=== PATIENT | female | born 1980 | race Caucasian/White ===

== ENCOUNTER 2018-12-17 11:50 | Day surgery (SDC) | payer MEDICARE ==
[~2018-12-17] VITALS: Ht 149.9 cm; Wt 75.0 kg
[~2018-12-17 11:50] MED LIST: ALPR1; ALPR1 PO; AMOCLA500 PO; AMOX875 PO; Augmentin 875-1 EACH PO; BP MED; CIPR500 PO; CONEST.625 PO; CYCL10 PO; ESTR2 PO; FAMO20 PO; GABA100 PO; GABA300; GABA300 PO; GABA600 PO; GABA800 PO; GABAPENTIN 600 MG; HYDACE5 PO; HYDACE7.5 PO; LEVFLO500 PO; LEVSOD25 PO; LEVSOD88 PO; METF500; METO25ER PO; METPRE4DP PO; MULVITMINE PO; Norco 5-325 Ta1 EACH PO; OXYACE5T PO; OXYACEL PO; PRAV20 PO; PRED10 PO; PROC10; PROC10 PO; PROM25 PO; SEASONALE; SERT100; SPIR50; TESTOSTERONE5 G1; TRIMOX; VERA120ERB PO; Zofran Odt4 MG PO; [UNRECOGNIZED DRUG - OTHER]
--- NOTE | 2018-12-17 14:47 | NUR ---
12/17/18 1447 Penny Amaya 2MG IV VERSED GIVEN TO PT JUST PRIOR TO ENTERING THE PROCEDURE ROOM PER DR OLIVARES.
[2018-12-17 17:58] LABS: Adenovirus F 40/41 Not Detected (NOT DETECT); Astrovirus Not Detected (NOT DETECT); Campylobacter Sp Not Detected (NOT DETECT); Cryptosporidium Not Detected (NOT DETECT); Cyclospora Cayetanensis Not Detected (NOT DETECT); E. Coli O157 Not Detected (NOT DETECT); Entamoeba Histolytica Not Detected (NOT DETECT); Enteroaggregative E. coli-EAEC Not Detected (NOT DETECT); Enteropathogenic E. coli-EPEC Not Detected (NOT DETECT); Enterotoxigenic E. coli-ETEC Not Detected (NOT DETECT); Giardia Lamblia Not Detected (NOT DETECT); Norovirus GI/GII Not Detected (NOT DETECT); Plesiomonas Shigelloides Not Detected (NOT DETECT); Rotavirus A Not Detected (NOT DETECT); Salmonella Sp Not Detected (NOT DETECT); Sapovirus Not Detected (NOT DETECT); Shiga Toxin-prod E. coli-STEC Not Detected (NOT DETECT); Shigella/Enteroin E. coli-EIEC Not Detected (NOT DETECT); Vibrio Cholerae Not Detected (NOT DETECT); Vibrio Sp Not Detected (NOT DETECT); Yersinia Enterocolitica Not Detected (NOT DETECT)
== END 2018-12-17 15:14 | disposition home or self-care (01) ==
LOC: ORSCSDS 11:50
PROVIDERS: Internal Medicine Gastroenterology
PROC: 0DB98ZX Excision of Duodenum, Via Natural or Artificial Opening Endoscopic, Diagnostic (ICD-10-PCS; principal; 2018-12-17 13:45)
PROC: 0DB58ZX Excision of Esophagus, Via Natural or Artificial Opening Endoscopic, Diagnostic (ICD-10-PCS; principal; 2018-12-17 13:45)
PROC: 0DBM8ZX Excision of Descending Colon, Via Natural or Artificial Opening Endoscopic, Diagnostic (ICD-10-PCS; principal; 2018-12-17 13:45)
PROC: 0DBE8ZX Excision of Large Intestine, Via Natural or Artificial Opening Endoscopic, Diagnostic (ICD-10-PCS; principal; 2018-12-17 13:45)
PROC: 0DB68ZX Excision of Stomach, Via Natural or Artificial Opening Endoscopic, Diagnostic (ICD-10-PCS; principal; 2018-12-17 13:45)
DX: R19.7 Diarrhea, unspecified (principal); R10.9 Unspecified abdominal pain; K57.30 Diverticulosis of large intestine without perforation or abscess without bleeding; K64.1 Second degree hemorrhoids; K29.80 Duodenitis without bleeding; R11.0 Nausea; K20.9 Esophagitis, unspecified; K29.70 Gastritis, unspecified, without bleeding; F17.210 Nicotine dependence, cigarettes, uncomplicated; G40.909 Epilepsy, unspecified, not intractable, without status epilepticus; Z79.899 Other long term (current) drug therapy; E03.9 Hypothyroidism, unspecified
CPT/HCPCS: 0097U; 88305; 88342; J2250; J2405; J2704; J7120

== ENCOUNTER 2021-09-09 15:41 | Emergency (ER) | payer OTHER ==
[~2021-09-09] VITALS: Ht 149.9 cm; Wt 63.0 kg
[2021-09-09 16:49] LABS: BASOPHILS ABSOLUTE AUTO 0.03 K/mm3 (0.00-0.23); BASOPHILS PERCENT AUTO 1 % (0-2); EOSINOPHILS ABSOLUTE AUTO 0.18 K/mm3 (0.00-0.68); EOSINOPHILS PERCENT AUTO 3 % (0-6); Hematocrit 45.8 % (33.0-51.0); Hemoglobin 15.4 g/dL (11.5-16.0); IMMATURE GRAN ABSOLUTE AUTO 0.03 K/mm3 (0.00-0.10); IMMATURE GRAN PERCENT AUTO 1 % (0-1); LYMPHOCYTES ABSOLUTE AUTO 1.76 K/mm3 (0.84-5.20); LYMPHOCYTES PERCENT AUTO 27 % (21-46); MONOCYTES ABSOLUTE AUTO 0.48 K/mm3 (0.16-1.47); MONOCYTES PERCENT AUTO 7 % (4-13); Mean Corpuscular HGB 30.8 pg (26.0-34.0); Mean Corpuscular HGB Conc 33.6 g/dL (31.5-36.5); Mean Corpuscular Volume 92 fL (80-100); NEUTROPHILS ABSOLUTE AUTO 4.15 K/mm3 (1.96-9.15); NEUTROPHILS PERCENT AUTO 63 % (41-73); Platelet Count 244 K/mm3 (150-400); RDW Coefficient Variation 11.9 % (11.7-14.2); RDW Standard Deviation 39.6 fL (35.1-46.3); White Blood Cell Count 6.63 K/mm3 (4.00-11.30)
[2021-09-09 17:11] LABS: Alanine Aminotransfer (ALT/SGP 548 U/L (12-78); Albumin, Blood 3.5 g/dL (3.4-5.0); Alk Phos 214 U/L (50-136); Anion Gap 5 mmol/L (6-16); Aspartate Aminotrans (AST/SGOT 524 U/L (12-37); Bilirubin, Total 2.9 mg/dL (0.1-1.0); Blood Urea Nitrogen 16 mg/dL (8-24); Bun/Creatinine Ratio 28.8 (12.0-20.0); CO2, Blood 26 mmol/L (21-32); Calcium, Blood 9.3 mg/dL (8.5-10.1); Chloride, Blood 105 mmol/L (98-108); Creatinine, Blood 0.56 mg/dL (0.40-1.00); Globulin, Blood 3.6 g/dL (2.2-4.0); Glomerular Filtration Rate >60 (60-); Glucose, Blood 129 mg/dL (70-99); Sodium, Blood 136 mmol/L (136-145); Total Protein, Blood 7.1 g/dL (6.4-8.2)
== END 2021-09-09 20:58 | disposition left against medical advice (07) ==
LOC: ER 15:41
PROVIDERS: Physician Assistant
DX: R19.7 Diarrhea, unspecified (principal); Z53.21 Procedure and treatment not carried out due to patient leaving prior to being seen by health care provider
CPT/HCPCS: 36415; 80053; 83690; 85025; 99281

== ENCOUNTER 2022-03-18 21:31 | Emergency (ER) | payer OTHER ==
[~2022-03-18] VITALS: Ht 149.9 cm; Wt 65.8 kg
[2022-03-19] MEDS ORDERED: PSEU120ER PO (00:59)
== END 2022-03-19 01:29 | disposition home or self-care (01) ==
LOC: ER 21:31
DX: G43.909 Migraine, unspecified, not intractable, without status migrainosus (principal); J34.89 Other specified disorders of nose and nasal sinuses; F17.210 Nicotine dependence, cigarettes, uncomplicated; Z88.6 Allergy status to analgesic agent; Z88.4 Allergy status to anesthetic agent; Z88.1 Allergy status to other antibiotic agents; Z88.5 Allergy status to narcotic agent; Z91.013 Allergy to seafood; Z88.2 Allergy status to sulfonamides; Z88.8 Allergy status to other drugs, medicaments and biological substances; Z91.018 Allergy to other foods; Z79.899 Other long term (current) drug therapy
CPT/HCPCS: 96374; 96375; 99283-25; J0780; J1100; J1200; J1885; J2405; J7030

== ENCOUNTER → 2022-10-19 | Outpatient (CLI) | payer OTHER ==
[~2022-10-19] MED LIST changes: +PSEU120ER PO
== END ==
LOC: LAB SHORT 13:11 → PLD 13:11
DX: L81.4 Other melanin hyperpigmentation (principal)
CPT/HCPCS: 88305

== ENCOUNTER 2024-08-07 22:32 | Emergency (ER) | payer OTHER ==
[~2024-08-07] VITALS: Ht 149.9 cm; Wt 68.5 kg
[2024-08-07 23:15] LABS: BASOPHILS ABSOLUTE AUTO 0.04 K/mm3 (0.00-0.23); BASOPHILS PERCENT AUTO 0 % (0-2); EOSINOPHILS ABSOLUTE AUTO 0.32 K/mm3 (0.00-0.68); EOSINOPHILS PERCENT AUTO 3 % (0-6); Hematocrit 38.1 % (33.0-51.0); Hemoglobin 13.2 g/dL (11.5-16.0); IMMATURE GRAN ABSOLUTE AUTO 0.04 K/mm3 (0.00-0.10); IMMATURE GRAN PERCENT AUTO 0 % (0-1); LYMPHOCYTES ABSOLUTE AUTO 3.92 K/mm3 (0.84-5.20); LYMPHOCYTES PERCENT AUTO 39 % (21-46); MONOCYTES ABSOLUTE AUTO 0.51 K/mm3 (0.16-1.47); MONOCYTES PERCENT AUTO 5 % (4-13); Mean Corpuscular HGB 31.1 pg (26.0-34.0); Mean Corpuscular HGB Conc 34.6 g/dL (31.5-36.5); Mean Corpuscular Volume 90 fL (80-100); Mean Platelet Volume 9.8 fL (9.1-12.4); NEUTROPHILS ABSOLUTE AUTO 5.29 K/mm3 (1.96-9.15); NEUTROPHILS PERCENT AUTO 52 % (41-73); Platelet Count 235 K/mm3 (150-400); RDW Coefficient Variation 12.4 % (11.7-14.2); RDW Standard Deviation 40.9 fL (35.1-46.3); Red Blood Cell Count 4.25 M/mm3 (3.80-5.20); White Blood Cell Count 10.12 K/mm3 (4.00-11.30)
[2024-08-07 23:39] LABS: Albumin, Blood 3.3 g/dL (3.4-5.0); Bilirubin, Total 0.2 mg/dL (0.1-1.0); Bun/Creatinine Ratio 23.6 (12.0-20.0); Calcium, Blood 8.6 mg/dL (8.5-10.1); Creatinine, Blood 0.76 mg/dL (0.40-1.00); Globulin, Blood 3.2 g/dL (2.2-4.0); Potassium, Blood 3.4 mmol/L (3.5-5.5); Total Protein, Blood 6.5 g/dL (6.4-8.2)
[2024-08-08 00:50] LABS: Magnesium, Blood 1.8 mg/dL (1.6-2.4); Phosphorus, Blood 3.2 mg/dL (2.5-4.9)
[2024-08-08 01:01] LABS: Source, Urine Clean Catch
[2024-08-08 01:13] LABS: Bilirubin, Urine Neg (Neg); Blood, Urine Neg (Neg); Glucose Qualitative, Urine Neg (Neg); Ketones, Urine Neg (Neg); Leukocyte Esterase, Urine Neg (Neg); Nitrite, Urine Neg (Neg); Protein, Urine Neg (Neg); Specific Gravity, Urine 1.025 (1.003-1.022); Urobilinogen, Urine NORM (Normal)
[2024-08-08 01:25] LABS: Appearance, Urine Clear (Clear); Color, Urine Yellow (P-Yellow)
[2024-08-08 01:30] VITALS: BP 97/60
[2024-08-08] MEDS ORDERED: Potassium Chloride 10 Meq Tablet SA PO ONE (01:30)
== END 2024-08-08 02:06 | disposition home or self-care (01) ==
LOC: ER 22:32
PROVIDERS: Emergency Medicine
DX: E87.6 Hypokalemia (principal); R63.5 Abnormal weight gain; R53.83 Other fatigue; R53.81 Other malaise; F17.210 Nicotine dependence, cigarettes, uncomplicated; Z88.1 Allergy status to other antibiotic agents; Z88.2 Allergy status to sulfonamides; Z88.8 Allergy status to other drugs, medicaments and biological substances; Z88.5 Allergy status to narcotic agent; Z79.899 Other long term (current) drug therapy; Z79.890 Hormone replacement therapy
CPT/HCPCS: 71046; 80053; 81003; 83735; 84100; 84484; 85025; 85379; 93005; 93010; 99285-25; A9270

== ENCOUNTER → 2024-10-09 | Outpatient (CLI) | payer OTHER ==
[2024-10-09 19:58] LABS: Candida Group, PCR NOT DETECTED (NOT DETECT); Candida glabrata-krusei, PCR NOT DETECTED (NOT DETECT)
[2024-10-09 20:02] LABS: Bacterial Vaginosis PCR Positive (NEGATIVE)
== END ==
LOC: LAB 15:00 → LAB SHORT 15:00
PROVIDERS: Internal Medicine
DX: Z91.89 Other specified personal risk factors, not elsewhere classified (principal)
CPT/HCPCS: 81515

== ENCOUNTER → 2024-10-18 | Outpatient (CLI) | payer OTHER ==
[2024-10-18 15:02] LABS: Candida glabrata-krusei, PCR NOT DETECTED (NOT DETECT)
[2024-10-18 16:30] LABS: Bacterial Vaginosis PCR Positive (NEGATIVE); Candida Group, PCR DETECTED (NOT DETECT)
== END | disposition home or self-care (01) ==
LOC: LAB 10:21 → LAB SHORT 10:21
PROVIDERS: Internal Medicine
DX: N76.0 Acute vaginitis (principal); B96.89 Other specified bacterial agents as the cause of diseases classified elsewhere
CPT/HCPCS: 81515

== ENCOUNTER → 2025-04-14 | Outpatient (CLI) | payer OTHER ==
[2025-04-14 12:51] LABS: Campylobacter Sp Not Detected (NOT DETECT); E. Coli O157 Not Detected (NOT DETECT); Enteroaggregative E. coli-EAEC Not Detected (NOT DETECT); Enteropathogenic E. coli-EPEC Not Detected (NOT DETECT); Enterotoxigenic E. coli-ETEC Not Detected (NOT DETECT); Salmonella Sp Not Detected (NOT DETECT); Shiga Toxin-prod E. coli-STEC Not Detected (NOT DETECT); Vibrio Sp Not Detected (NOT DETECT)
[2025-04-14 12:52] LABS: Shigella/Enteroin E. coli-EIEC Not Detected (NOT DETECT)
[2025-04-17 17:20] LABS: CALPROTECTIN,FECAL 13 ug/g (<=49); PANCREATIC ELASTASE,FECAL >800 ug/g (>=100)
== END ==
LOC: LAB 09:07 → LAB SHORT 09:07
PROVIDERS: Student in an Organized Health Care Education/Training Program
DX: K52.9 Noninfective gastroenteritis and colitis, unspecified (principal)
CPT/HCPCS: 82653; 83993; 87507